=== PATIENT | male | born 1980 | race Caucasian/White ===

== ENCOUNTER → 2019-11-10 09:03 | Outpatient (CLI) | payer MEDICAID, SELFPAY ==
--- NOTE | 2019-11-10 09:09 | CT_ITS ---
PROCEDURE: CT ABDOMEN PELVIS WO CON CLINICAL INDICATION: RT LOWER QUAD PAIN for 1 month COMPARISON: No exams were available for comparison TECHNIQUE: Axial images obtained with sagittal and coronal reformats. All CT scans at the facility use one or more dose reduction, viz: automated exposure control, ma/kV adjustment per patient size (including targeted exams where dose is matched to indication, i.e. head), or iterative reconstruction technique. FINDINGS: Lower thorax: The lower lung kay are clear and there is no pleural fluid. Cardiac size is normal. ABDOMEN: Liver: The liver is normal in size, there is mild diffuse decreased density suggesting hepatic steatosis Gallbladder: Post cholecystectomy Pancreas: No masses or peripancreatic fluid collections. Spleen: unremarkable Adrenals: unremarkable Kidneys/ureters: The kidneys are normal size and no calculi and there is no obstructive uropathy. ABDOMEN & PELVIS: Stomach bowel: The stomach and duodenal sweep are normal. The small bowel appears grossly normal. There is moderate scattered stool and gas seen throughout the colon. Peritoneum: No abnormal fluid collections. No obvious inflammatory changes. No free air. Lymph nodes: No enlarged lymph nodes apparent. Vasculature: No evidence of abdominal aortic aneurysm. No retroperitoneal hemorrhage evident. Bones: No acute fracture PELVIS: Reproductive: unremarkable Bladder: The urinary bladder is partially decompressed but shows a markedly and diffusely thickened wall with a basically normal size prostate. This which suggest possible chronic cystitis. Appendix: Post appendectomy IMPRESSION: Mild hepatic steatosis a prominently diffusely thickened urinary bladder wall without enlarged prostate suggesting possible chronic cystitis Dictated by: Dr. Ernesto Aguilar MD 11/10/2019 09:[address] Ernesto Aguilar MD in [place] 11/10/2019 09:41
== END ==
PROVIDERS: Visit Provider Family Medicine
DX: R10.31 Right lower quadrant pain (principal)
CPT/HCPCS: 74176

== ENCOUNTER 2020-04-24 13:53 | Emergency (ER) | payer MEDICAID, SELFPAY ==
[2020-04-24 14:03] VITALS: BP 169/69; PULSE 120; RESP 19; TEMP 36.9; O2SAT 99; BMI 34.5
--- NOTE | 2020-04-24 14:13 | [facility].EDGENADL ---
ED Disposition Clinical Impression: Viral syndrome Disposition: Home, Self-Care Condition on Discharge: Good Additional Instructions: Return to the emergency room should you have worsening chills fever inability to tolerate by mouth or any other concerns. Return within the next 8 hours otherwise follow-up with your primary care physician Referrals: PCP,No [Non-Staff] - - Critical Care Critical Care Time: No Attestation: On 04/24/20, the high probability of a clinically significant, sudden or life threatening deterioration of the following system(s) required my full and direct attention, intervention and personal management. The time I documented below is in addition to time spent performing reported procedures but includes the following listed in this critical care notation. Medical Decision Making - Medical Records Medical records reviewed: Yes: I reviewed the patient's medical records. - Tong Inquiry Pt receiving controlled substance: No Vital Signs: 04/24/20 14:03 04/24/20 14:56 Temperature 98.4 F Temperature Source Oral Pulse Rate [Left] 120 H 87 Respiratory Rate 19 17 Blood Pressure [Right Arm] 169/69 H 138/70 Blood Pressure Mean [Right Arm] 102 92 Blood Pressure Source [Right Arm] Automatic Cuff Blood Pressure Position [Right Arm] Supine 02 Sat by Pulse Oximetry 99 97 Oxygen Delivery Method Room Air - Lab Data Lab Results 04/24/20 14:30: WBC 6.2, RBC 5.45, Hgb 17.8, Hct 52.6 H, MCV 96.5 H, MCH 32.7 H, MCHC 33.9, RDW 14.2, Plt Count 125 L, MPV 9.4, Neut % (Auto) 84.8 H, Lymph % (Auto) 10.0, [place] % (Auto) 3.5, Eos % (Auto) 0.4, Baso % (Auto) 1.4, Neut # (Auto) 5.2, Lymph # (Auto) 0.6 L, [place] # (Auto) 0.2, Eos # (Auto) 0.0, Baso # (Auto) 0.1 04/24/20 14:30: Sodium 138, Potassium 3.9, Chloride 101, Carbon Dioxide 31 H, Anion Gap 9.9, BUN 14, Creatinine 1.10, Estimated Creat Clear 145, Estimated GFR 74, Est GFR ( Amer) 89, Glucose 111 H, Calcium 10.0, Total Bilirubin 0.6, AST 46, ALT 61, Alkaline Phosphatase 69, Total Protein 7.9, Albumin 4.9, Globulin 3.0, Albumin/Globulin Ratio 1.6, Lipase 81 04/24/20 15:00: Urine Color Yellow, Urine Appearance Clear, Urine pH 6.0, Ur Specific [place] 1.025, Urine Protein Negative, Urine Glucose (UA) Negative, Urine Ketones Negative, Urine Blood Negative, Urine Nitrate Negative, Urine Bilirubin Negative, Urine Urobilinogen 1.0, Ur Leukocyte Esterase 1+ A Result diagrams: 04/24/20 14:30 04/24/20 14:30 Orders (Tests/Meds): ED MEDICATIONS Discontinued Medications Generic Name Dose Route Start Last Admin Trade Name Freq PRN Reason Stop Dose Admin Sodium Chloride 1,000 mls @ 999 mls/hr 04/24/20 14:15 04/24/20 14:30 Sod Chlor 0.9% 1000ml Bag IV 04/24/20 15:15 999 mls/hr .Q1H1M GELACIO Administration Morphine Sulfate 4 mg 04/24/20 14:08 04/24/20 14:28 Morphine 4mg/Ml Syringe IV 04/24/20 14:09 4 mg ONCE ONE Administration Ondansetron HCl 4 mg 04/24/20 14:08 Ondansetron 4mg Odt SL 04/24/20 14:09 ONCE ONE Ondansetron HCl 4 mg 04/24/20 14:31 04/24/20 14:32 Ondansetron 4mg/2ml Vial IV 04/24/20 14:32 4 mg ONCE ONE Administration ORDERS Category Date Time Status Urinalysis and Microscopic Stat Lab 04/24/20 15:00 Results Urine Culture Stat Micro 04/24/20 15:00 Received Medical Decision Narrative: 39-year-old gentleman presents with hills. He has muscle aches as well. He appears to have symptoms consistent with a viral syndrome. He does have mild epigastric pain however does not have acute abdomen on exam or concern for perforation and ischemia obstruction or any other emergent pathology. Giving IV fluids and checking labs and plan to reassess. Patient is feeling much better after IV fluids and pain medicine. CMP and lipase were within normal limits urinalysis was negative. On repeat abdominal exam he has no abdominal tenderness. Otherwise given strict return precautions discharged home. He w
[2020-04-24 14:40] LABS: Basophils # 0.1 K/mm3 (0-0.2); Basophils % 1.4 % (0.1-2.0); Eosinophils % 0.4 % (0.1-12.0); Hematocrit 52.6 % (42.0-52.0); Hemoglobin 17.8 g/dL (14.1-18.0); Lymphocytes # 0.6 K/mm3 (0.7-4.5); Mean Corpuscular HGB Conc 33.9 g/dL (31.8-35.4); Mean Corpuscular Hemoglobin 32.7 pg (27.0-31.2); Mean Corpuscular Volume 96.5 fl (80-94); Mean Platelet Volume 9.4 fl (7.4-10.4); Monocytes # 0.2 K/mm3 (0.1-1.0); Monocytes % 3.5 % (1.7-9.3); Neutrophils # 5.2 K/mm3 (1.8-7.8); Neutrophils % 84.8 % (37.0-80.0); Platelet Count 125 K/mm3 (142-424); Red Blood Count 5.45 M/mm3 (4.60-6.20); Red Cell Distribution Width 14.2 % (11.5-17.5); White Blood Count 6.2 K/mm3 (4.8-10.8)
[2020-04-24 14:44] LABS: Chloride 101 mmol/L (98-107); Potassium 3.9 mmoL/L (3.5-5.1); Sodium 138 mmol/L (136-145)
[2020-04-24 14:46] LABS: Blood Urea Nitrogen 14 mg/dl (9-20); Creatinine Clearance Estimated 145 mL/min (50-200); Estimated Glomerular Filt Rate 74 ml/min (>60); GFR (African American) 89 ML/MIN (>60)
[2020-04-24 14:47] LABS: Alanine Aminotransferase 61 U/L (12-78); Albumin Level 4.9 g/dl (3.5-5.0); Albumin/Globulin Ratio 1.6 (1.1-1.8); Alkaline Phosphatase 69 U/L (38-126); Anion Gap 9.9 mEq/L (5-15); Aspartate Amino Transferase 46 U/L (17-59); Bilirubin,Total 0.6 mg/dl (0.2-1.3); Carbon Dioxide 31 mmol/L (22.0-30.0); Glucose 111 mg/dl (74-100); Lipase 81 U/L (23-300); Total Protein,Serum 7.9 g/dl (6.3-8.2)
[2020-04-24 14:56] VITALS: BP 138/70; PULSE 87; RESP 17; O2SAT 97
[2020-04-24 15:06] LABS: Microscopic, Urine URINE MICROSCOPIC (MICROSCOPIC)
[2020-04-24 15:08] LABS: Appearance,Urine CLEAR (Clear); Bilirubin,Urine Negative (Negative); Blood, Urine Negative (Negative); Color,Urine YELLOW (Yellow); Glucose,Urine (UA) Negative (Negative); Ketones,Urine Negative (Negative); Leukocyte Esterase,Urine 1+ (Negative); Nitrate,Urine Negative (Negative); Protein,Urine Negative (Negative); Specific Gravity, Urine 1.025 (1.005-1.030)
[2020-04-24 15:19] LABS: Bacteria,Urine 2+ /lpf
[2020-04-24 15:21] VITALS: BP 138/70; PULSE 87; RESP 17; TEMP 36.9; O2SAT 97
== END 2020-04-24 15:22 | disposition home or self-care (01) ==
PROVIDERS: Emergency Provider Emergency Medicine; PCP Nurse Practitioner Family
DX: B34.9 Viral infection, unspecified (principal); F17.210 Nicotine dependence, cigarettes, uncomplicated
CPT/HCPCS: 80053; 81001; 83690; 85025; 87086; 96365; 96375; 99283; J2405

== ENCOUNTER 2025-01-06 13:48 | Emergency (ER) | payer MEDICAID, SELFPAY ==
[2025-01-06 14:05] VITALS: BP 126/92; PULSE 80; RESP 17; TEMP 37.2; O2SAT 100; BMI 31.0
[2025-01-06 14:12] LABS: Coronavirus 19, PCR Not Detected (NotDetected); Influenza A, PCR Not Detected (NotDetected); Influenza B, PCR Not Detected (NotDetected)
--- NOTE | 2025-01-06 14:17 | ED_ITS ---
<Statement entered by Jorge Luis Puentes DO - 01/06/25 17:19> I was consulted by the MILLIE, and we discussed the complexity of problems being addressed. I approved the treatment and management plan for this patient's care in the emergency department, thus performing a substantive portion of the medical decision making. Jorge Luis Puentes DO Discharge Plan Disposition Patient Disposition: Home, Self-Care Condition: Good Prescriptions Prescriptions: New amoxicillin-pot clavulanate 875-125 mg tablet 1 tab PO BID 7 Days Qty: 14 0RF Referrals Follow up/Referrals: Kristie Romo [Primary Care Provider, Medical] - See instructions Activity Restrictions/Add. Instructions Additional Instructions/Restrictions: Please take your medication as prescribed, with food, please return to the emergency department with any worsening signs or symptoms, I recommend utilizing [id number] cold and flu medications for symptomatic relief as well as oral or nasal decongestions as needed for congestion relief. Please follow-up with your PCP. Clinical Impressions Clinical Impression: Sinusitis Instructions Patient Instructions: DI for Sinusitis Print Language Print Language: Kazakh Discharge ED Provider: Jorge Luis Puentes General Adult HPI General Chief complaint: Upper Respiratory Infection Stated complaint: chills, drainage, soa, headache,vomiting Time Seen by Provider: 01/06/25 14:01 Mode of Arrival: Ambulatory Source of Information: Patient Description of Symptoms (Recalled from ER Triage Doc. by RN): patient states he has had congestion runny nose cough fever chills for 2 days History of Present Illness HPI narrative: 44-year-old male presents to the emergency department with headache, postnasal drip, congestion and sinus pressure , for the last 2 weeks, worsened within the last 2 days, he admits to subjective fever and chills, denies any chest pain denies any shortness of breath, has had some episodes of what is described as posttussive emesis, patient states he feels like he has some drainage in the back of his throat, attempts to cough this up, and has had 3-4 episodes of vomiting , over the last 2 weeks. Patient states he is prone to getting sinus infections , and typically gets antibiotics for this , patient denies any nausea or vomiting no abdominal pain no constipation no diarrhea no hematuria melena hematochezia hematemesis, no lightheadedness no dizziness, no presyncopal or syncopal event, no urinary type symptomatology. Initial triage vitals are unremarkable, patient is a current everyday smoker, denies any alcohol or drug use, denies any sick contacts, denies any other real relevant past medical hist ory takes no other medications at home. Please note that above description of symptoms, in this electronic medical record under categorization of recalled from ER triage doctor by RN are reflective of an initial nursing assessment, however, is not reflective of my full history and physical exam that was personally taken and clarified. Consequentially, this preceding description of symptoms, which may include the patient's categorized chief complaint in the EMR, do not reflect my personal clinical impression, and the ultimate description of history of present illness and patient stated complaints should be deferred to this section of the note. Unless stated otherwise or congruent with this section of the note, additional signs, symptoms, or incongruence should be interpreted as inaccurate with my clinical impression. Onset (ago): week(s) Related Data Previous Rx's ?Medication ?Instructions ?Recorded amoxicillin 875 mg-potassium 1 tab PO BID 7 days #14 t abs 01/06/25 clavulanate 125 mg tablet Allergies Allergy/AdvReac Type Severity Reaction Status Date / Time No Known Allergies Allergy Verified 04/24/20 14:12 [facility] Disclaimer: The information contained in this section may have been updated after the patient was seen, as this information can be updated by other users. Social History Smoking Status: Never smoker second hand exposure: No alcohol intake: never current occupational status: employed Travel in the last 8 weeks?: None Have you lived/traveled outside [place] in past 30 days?: No Contact w/someone who lives/traveled outside [place] past 30 days?: No Exposure to someone with infectious disease in past 14 days?: No Do you have a fever (greater than 100.4 F or 38 C)?: No Have you tested positive for COVID-19?: No Exposed to someone with COVID-19 in past 14 days?: No Do you have a sore throat?: Yes Do you have a cough?: No Do you have any weakness?: No Do you have any diarrhea?: Yes Are you experiencing any unusual bleeding?: No Do you have any muscle aches/pain?: No Do you have any abdominal pain?: No Are you experiencing loss of taste or smell?: No Other Medical History Have you received the Flu Vaccine for this season: No Have you received the Pneumonia Vaccine: No ROS Obtained: Yes All systems reviewed & no additional complaints except as documented Physical Exam General General appearance: alert and in no apparent distress Head Head exam: atraumatic and normocephalic Eye Eye exam: Present PERRL and EOMI ENT ENT exam: Present normal oropharynx, mucous membranes moist and other (Pain to palpation over the maxillary and frontal sinuses bilaterally) Neck Neck exam: Present normal inspection Chest Chest inspection: Present normal inspection and symmetric chest wall rise Respiratory Respiratory exam: Present normal lung sounds bilaterally; Absent respiratory distress Cardiovascular Cardiovascular exam: Present regular rate and normal rhythm Abdominal Exam Abdominal exam: Present soft; Absent tenderness, guarding, rebound or rigidity Extremities Exam Extremities exam: Present normal inspection Neurological Exam Neurological exam: Present alert and oriented X3 Psychiatric Psychiatric exam: Present normal affect Skin Skin exam: Present warm and dry Medical Decision Making Medical Records Medical records reviewed: Yes I reviewed the patient's medical records. Screening: Per USPSTF and CDC recommendations, given the prevalence of disease in our region, it is our hospital?s policy to screen for HIV and viral Hepatitis for all patients aged 18 and over and those with ongoing risk factors. Tong Inquiry Pt receiving controlled substance: No Tong was queried for this patient: No Vital Signs: 01/06/25 14:05 Temperature 98.9 F Temperature Source Oral Pulse Rate [Right Radial] 80 Respiratory Rate 17 Blood Pressure [Right Arm] 126/92 H Blood Pressure Mean [Right Arm] 103 Blood Pressure Source [Right Arm] Automatic Cuff Blood Pressure Position [Right Arm] Sitting 02 Sat by Pulse Oximetry 100 Oxygen Delivery Method Room Air Orders (Tests/Meds): ORDERS Category Date Time Status HIV Combo Stat Lab 01/06/25 14:12 Ordered Hepatitis C Ab Qual. W/ RFX Stat Lab 01/06/25 14:12 Ordered Rapid PCR Covid and Flu A/B Stat Lab 01/06/25 14:08 Received Medical Decision Narrative: 44-year-old male presents to the emergency department with URI type symptomatology and gesturing for 2 weeks, differential diagnose include but not limited to, acute URI, viral sinusitis, bacterial sinusitis, allergic rhinitis among others. I discussed this patient's case with the attending physician Dr. Puentes he saw and examined the patient as well. Will obtain rapid PCR COVID and flu, patient has classic signs and symptoms c onsistent with acute bacterial sinusitis this patient's symptomatology has been ongoing for the last 10 to 14 days, will prescribe the patient Augmentin 875 mg p.o. twice daily for 7 days, recommend [id number] cold and flu medications and nasal decongestions/oral decongestions for symptomatic relief. Patient voiced understanding and agreement with the current discharge plan/treatment plan. 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 Strict ED return precautions are given. Critical Care Critical Care Time Critical Care Time: No
[2025-01-06 14:30] VITALS: BP 125/81; PULSE 69; RESP 12; O2SAT 100
[2025-01-06 14:42] VITALS: BP 125/81; PULSE 77; RESP 16; TEMP 36.6; O2SAT 99
== END 2025-01-06 14:44 | disposition home or self-care (01) ==
PROVIDERS: Emergency Provider Student in an Organized Health Care Education/Training Program; PCP Nurse Practitioner Family
DX: J32.9 Chronic sinusitis, unspecified (principal); B34.9 Viral infection, unspecified
CPT/HCPCS: 87636; 99282